=== PATIENT | female | born 1990 | race American Indian/Alaskan Native ===

== ENCOUNTER 2018-07-09 07:02 | Emergency (ER) | payer MEDICAID ==
[2018-07-09 07:36] LABS: Basophils # (Auto) 0.1 K/mm3 (0.0-0.1); Basophils % (Auto) 0.6 % (0.0-1.8); Eosinophils # (Auto) 0.2 K/mm3 (0.0-0.4); Eosinophils % (Auto) 2.3 % (0.0-4.3); Hematocrit 36.9 % (30.3-42.9); Hemoglobin 12.2 gm/dl (10.1-14.3); Lymphocytes # (Auto) 3.6 K/mm3 (1.2-5.4); Lymphocytes % (Auto) 36.8 % (13.4-35.0); Mean Corpuscular HGB Conc 33 % (30-34); Mean Corpuscular Hemoglobin 32 pg (28-32); Mean Corpuscular Volume 97 fl (79-97); Monocytes # (Auto) 0.8 K/mm3 (0.0-0.8); Platelet Count 221 K/mm3 (140-440); Red Blood Count 3.82 M/mm3 (3.65-5.03); Red Cell Distribution Width 14.3 % (13.2-15.2)
[2018-07-09 07:48] LABS: Bilirubin,Urine NEG (Negative); Blood,Urine SM (Negative); Color,Urine Yellow (Yellow); Mucus,Urine 3+ /HPF; Urobilinogen,Urine < 2.0 mg/dL (<2.0)
[2018-07-09 07:51] LABS: Alanine Aminotransferase 9 units/L (7-56); Albumin 3.9 g/dL (3.9-5); BUN/Creatinine Ratio 35; Blood Urea Nitrogen 14 mg/dL (7-17); Calcium 9.2 mg/dL (8.4-10.2); Hemolysis Index 9
[2018-07-09] MEDS ORDERED: TORADOL IM ONE (10:17)
--- NOTE | 2018-07-09 10:20 | Emergency Department Report ---
HPI - General Chief Complaint: Abdominal Pain Time Seen by Provider: 07/09/18 10:08 - HPI HPI: 27-year-old female presents to the emergency department with 2 main complaints. First, the patient has been dealing with a 2 or 3 day history of some left lower back dental pain. She denies any trauma, chipped teeth, discharge or bleeding. She says that she has a dentist but has not seen them regarding the symptoms. Her second complaint is some pelvic pain with some radiation towards the lower back and her sacral area that has been going on for the past few weeks. For both of these symptoms she recently tried some ibuprofen without much relief. She denies any tobacco use but is an occasional marijuana smoker. No primary care physician. Recent travel or sick contacts at home. No drooling or trismus. She also denies any vaginal bleeding or discharge, dysuria, fever, nausea or vomiting. Patient's lab work shows that she is which she was not aware of. Last menstrual cycle was May 26. With this she is with 2 live children and 2 previous abortions. ED Past Medical Hx - Past Medical History Previous Medical History?: No Hx Hypertension: No Hx Congestive Heart Failure: No Hx Diabetes: No Hx Deep Vein Thrombosis: No Hx Renal Disease: No Hx Sickle Cell Disease: No Hx Seizures: No Hx Asthma: No Hx COPD: No Hx HIV: No - Surgical History Past Surgical History?: Yes Additional Surgical History: x 1 - Social History Smoking Status: Never Smoker Substance Use Type: Marijuana - Medications Home Medications: Home Medications Medication Instructions Recorded Confirmed Last Taken Type Ferrous Sulfate [Feosol 325 MG tab] 325 mg PO TID #90 tablet 10/04/14 Unknown Rx Ibuprofen [Motrin 800 MG tab] 800 mg PO Q8H PRN #90 tablet 10/04/14 Unknown Rx oxyCODONE /ACETAMINOPHEN [Percocet 1 tab PO Q6HR PRN #30 tablet 10/04/14 Unknown Rx 5/325 mg] Pnv with Ca,No.72/Iron/FA 1 tab PO DAILY 10/07/14 10/07/14 Unknown History [ Plus Tablet] Valacyclovir HCl [Valacyclovir] 1 tab PO DAILY 10/07/14 10/07/14 Unknown History Acetaminophen/Codeine [Tylenol #3] 1 tab PO Q6H PRN #30 tab 11/21/15 Unknown Rx Cyclobenzaprine [Flexeril] 10 mg PO TID PRN #30 tablet 11/21/15 Unknown Rx Ibuprofen [Motrin] 600 mg PO Q8H PRN #60 tablet 11/21/15 Unknown Rx Amoxicillin [Trimox CAP] 500 mg PO Q8H #21 capsule 07/09/18 Unknown Rx Vits96/Iron Fum/Folic 1 each PO QDAY #30 tablet 07/09/18 Unknown Rx [ Tablet] ED Review of Systems ROS: Stated complaint: MOUTH PAIN,ABD PAIN, BACK PAIN Other details as noted in HPI Comment: All other systems reviewed and negative Constitutional: denies: chills, fever Eyes: denies: eye pain, eye discharge, vision change ENT: dental pain. denies: throat pain Respiratory: denies: cough, shortness of breath, wheezing Cardiovascular: denies: chest pain, palpitations Gastrointestinal: denies: abdominal pain, nausea, diarrhea Genitourinary: other (pelvic pain). denies: dysuria, discharge Musculoskeletal: back pain. denies: arthralgia Skin: denies: rash, lesions Neurological: denies: headache, weakness, paresthesias Physical Exam - Physical Exam Vital Signs: Vital Signs 07/09/18 07:16 Temperature 98.6 F Pulse Rate 103 H Respiratory 18 Rate Blood Pressure 141/72 O2 Sat by Pulse 100 Oximetry Physical Exam: GENERAL: The patient is well-developed well-nourished. HENT: Normocephalic. Atraumatic. Patient has moist mucous membranes. No drooling or trismus. Oropharynx is clear. There is some tenderness to palpation along the left lower gumline and teeth but no palpable or visible abscess. EYES: Extraocular motions are intact. NECK: Supple. Trachea is midline. No obvious lymphadenopathy.. CHEST/LUNGS: Clear to auscultation. There is no respiratory distress noted. HEART/CARDIOVASCULAR: Regular. There is no tachycardia. There is no murmur. ABDOMEN: Abdomen is soft, nontender. No guarding. Patient has normal bowel sounds. There is no abdominal distention. SKIN: Skin is warm and dry. NEURO: The patient is awake, alert, and oriented. The patient is cooperative. The patient has no focal neurologic deficits. The patient has normal speech. MUSCULOSKELETAL: There is no tenderness or deformity. There is no limitation range of motion. There is no evidence of acute injury. ED Course Vital Signs 07/09/18 07:16 Temperature 98.6 F Pulse Rate 103 H Respiratory 18 Rate Blood Pressure 141/72 O2 Sat by Pulse 100 Oximetry ED Medical Decision Making - Lab Data Result diagrams: 07/09/18 07:26 07/09/18 07:26 - Radiology Data Radiology results: report reviewed ULTRASOUND OB LESS THAN 14 WEEKS - TRANSABDOMINAL AND TRANSVAGINAL INDICATION: , pelvic pain. COMPARISON: None similar during this gestation. FINDINGS: Transabdominal and transvaginal pelvic sonography performed in this patient with LMP of 05/26/2018 and estimated menstrual age of 4 weeks and 2 days. It demonstrates an anteverted, gravid uterus estimated at 10.1 x 5.6 x 6.8 cm with a single, viable intrauterine gestation with heart rate of 137 beats per minute. Mean gestational sac diameter of 0.98 cm corresponds to 5 weeks and 5 days. Mean crown-rump length of 0.32 cm corresponds to 6 weeks and zero days. A small yolk sac also seen. Multiple uterine fibroids noted as on endovaginal images 13-31 measuring up to approximately 1.2 cm. Endometrial stripe thickness towards the fundus, where felt seen, is approximately 0.7 cm, endovaginal image 3. Small nabothian cyst also seen. Minimal pelvic free fluid. Unremarkable 3.2 x 1.5 x 2.6 cm right ovary. Left ovary enlarged to 7.6 x 9.2 x 10.7 cm secondary to a 9.5 cm intrinsic cyst as on endovaginal image 42. A 3.2 cm left ovarian cyst was also noted on February 2013 ultrasound report. CONCLUSION: 1. Single, live intrauterine gestation with an ultrasound estimated age of 5 weeks and 6 days and SHERIN of 03/05/2019. 2. Other findings, including multiple small fibroids and a a large left ovarian cyst, as described. Thank you for the opportunity to participate in this patient's care. Transcribed By: RS Dictated By: PAO LOZOYA MD Electronically Authenticated By: PAO LOZOYA MD Signed Date/Time: 07/09/18 1201 - Medical Decision Making Patient came in with 2 complaints. Regarding her tooth and/or jaw pain, the patient may be developing an infection but there is no visible or palpable abscess at this time. No facial swelling. No drooling or trismus. She will be placed on some amoxicillin and encouraged follow-up with a dentist. Regarding her pelvic pain, the patient's blood work came back showing that she has positive . She had a beta hCG of 2800. An obstetrical ultrasound was done that shows a live intrauterine gestation of about 5 weeks and 6 days. There is also multiple small fibroids and a moderate to large left sided ovarian cyst. Any of these could be the cause of her discomfort. No current vaginal bleeding. We discussed using Tylenol and avoiding NSAIDs for discomfort. She'll be started on vitamins. She has been instructed to follow-up with her [facility] in the next few days. She will return to the ER with any worsening of her symptoms or any acute distress. - Differential Diagnosis , fibroids, ovarian cyst, UTI, dental abscess, toothache Critical Care Time: No Critical care attestation.: If time is entered above; I have spent that time in minutes in the direct care of this critically ill patient, excluding procedure time. ED Disposition Clinical Impression: Pain, dental, Pelvic pain Qualifiers: Weeks of gestation: less than 8 weeks Qualified Code(s): Z3A.01 - Less than 8 weeks gestation of Fibroids Qualifiers: Uterine leiomyoma location: unspecified location Qualified Code(s): D25.9 - Leiomyoma of uterus, unspecified Ovarian cyst Qualifiers: Laterality: left Qualified Code(s): N83.202 - Unspecified ovarian cyst, left side Disposition: DC-01 TO HOME OR SELFCARE Is pt being admited?: No Condition: Stable Instructions: (ED), Ovarian Cyst (ED), Uterine Fibroids (ED), Toothache (ED) Additional Instructions: Please follow-up with your [facility] in the next few days. Return to the emergency Department with any worsening of your symptoms, development of vaginal bleeding, or with any acute distress. I'm starting you on vitamins. Take the antibiotics as prescribed. He can take Tylenol as needed, every 4 hours, using weight-based dosing for discomfort but avoid any NSAID such as ibuprofen, Aleve, Motrin, naproxen. Prescriptions: Amoxicillin [Trimox CAP] 500 mg PO Q8H #21 capsule Vits96/Iron Fum/Folic [ Tablet] 1 each PO QDAY #30 tablet Referrals: [facility] [Provider Group] - 2-3 Days Time of Disposition: 12:31
--- NOTE | 2018-07-09 12:07 | Ultrasound Report ---
ULTRASOUND OB LESS THAN 14 WEEKS - TRANSABDOMINAL AND TRANSVAGINAL INDICATION: , pelvic pain. COMPARISON: None similar during this gestation. FINDINGS: Transabdominal and transvaginal pelvic sonography performed in this patient with LMP of 05/26/2018 and estimated menstrual age of 4 weeks and 2 days. It demonstrates an anteverted, gravid uterus estimated at 10.1 x 5.6 x 6.8 cm with a single, viable intrauterine gestation with heart rate of 137 beats per minute. Mean gestational sac diameter of 0.98 cm corresponds to 5 weeks and 5 days. Mean crown-rump length of 0.32 cm corresponds to 6 weeks and zero days. A small yolk sac also seen. Multiple uterine fibroids noted as on endovaginal images 13-31 measuring up to approximately 1.2 cm. Endometrial stripe thickness towards the fundus, where felt seen, is approximately 0.7 cm, endovaginal image 3. Small nabothian cyst also seen. Minimal pelvic free fluid. Unremarkable 3.2 x 1.5 x 2.6 cm right ovary. Left ovary enlarged to 7.6 x 9.2 x 10.7 cm secondary to a 9.5 cm intrinsic cyst as on endovaginal image 42. A 3.2 cm left ovarian cyst was also noted on February 2013 ultrasound report. CONCLUSION: 1. Single, live intrauterine gestation with an ultrasound estimated age of 5 weeks and 6 days and SHERIN of 03/05/2019. 2. Other findings, including multiple small fibroids and a a large left ovarian cyst, as described. Thank you for the opportunity to participate in this patient's care.
[2018-07-09 12:38] VITALS: BP 118/62
== END 2018-07-09 12:36 | disposition home or self-care (01) ==
LOC: ED 07:02
DX: O26.891 Other specified pregnancy related conditions, first trimester (principal); K08.89 Other specified disorders of teeth and supporting structures; D25.9 Leiomyoma of uterus, unspecified; N83.202 Unspecified ovarian cyst, left side; Z3A.01 Less than 8 weeks gestation of pregnancy
CPT/HCPCS: 36415; 76801; 76817; 80053; 81001; 84702; 84703; 85025; 99284

== ENCOUNTER 2019-06-12 14:40 | Emergency (ER) | payer MEDICAID ==
[2019-06-12 16:00] VITALS: BP 133/76
[2019-06-12] MEDS ORDERED: TORADOL IM ONE (16:00)
--- NOTE | 2019-06-12 16:00 | Event Note ---
ED Screening Note Date of service: 06/12/19 Time: 15:58 ED Screening Note: 28 y/o female comes in for headache and back pain for 1 week of headache. Took Ibuprofen a couple days ago. No trauma. No weakness. This initial assessment/diagnostic orders/clinical plan/treatment(s) is/are subject to change based on patients health status, clinical progression and re- assessment by fellow clinical providers in the ED. Further treatment and workup at subsequent clinical providers discretion. Patient/guardian urged not to elope from the ED as their condition may be serious if not clinically assessed and managed. Initial orders include:
[2019-06-12] MEDS ORDERED: REGLAN PO ONE (17:32)
[2019-06-12] MEDS ORDERED: BENADRYL PO ONE (17:32)
--- NOTE | 2019-06-12 17:32 | Emergency Department Report ---
ED General Adult HPI - General Chief complaint: Headache Stated complaint: HEADACHE/BACK PAIN Time Seen by Provider: 06/12/19 15:58 Source: patient Mode of arrival: Ambulatory Limitations: No Limitations - History of Present Illness Initial comments: Patient is a 28-year-old female who presents emergency room with complaints of a right frontal headache that began a week ago. Patient states it has been intermittently. She states she has been taking ibuprofen with some relief. Patient denies any vision changes, numbness, weakness, fever, neck stiffness, gait disturbance, speech disturbance. States she has also been having some lower back discomfort since today. she denies any urinary symptoms, nausea, vomiting, diarrhea, fall, injury, bowel or bladder incontinence, numbness, weakness. LNMP was [id number]. Severity scale (0 -10): 8 - Related Data Home Medications Medication Instructions Recorded Confirmed Last Taken Pnv with Ca,No.72/Iron/FA 1 tab PO DAILY 10/07/14 10/07/14 Unknown [ Plus Tablet] Valacyclovir HCl [Valacyclovir] 1 tab PO DAILY 10/07/14 10/07/14 Unknown Previous Rx's Medication Instructions Recorded Last Taken Type Ferrous Sulfate [Feosol 325 MG tab] 325 mg PO TID #90 tablet 10/04/14 Unknown Rx Ibuprofen [Motrin 800 MG tab] 800 mg PO Q8H PRN #90 tablet 10/04/14 Unknown Rx oxyCODONE /ACETAMINOPHEN [Percocet 1 tab PO Q6HR PRN #30 tablet 10/04/14 Unknown Rx 5/325 mg] Acetaminophen/Codeine [Tylenol #3] 1 tab PO Q6H PRN #30 tab 11/21/15 Unknown Rx Cyclobenzaprine [Flexeril] 10 mg PO TID PRN #30 tablet 11/21/15 Unknown Rx Ibuprofen [Motrin] 600 mg PO Q8H PRN #60 tablet 11/21/15 Unknown Rx Amoxicillin [Trimox CAP] 500 mg PO Q8H #21 capsule 07/09/18 Unknown Rx Vits96/Iron Fum/Folic 1 each PO QDAY #30 tablet 07/09/18 Unknown Rx [ Tablet] Baclofen [Lioresal] 10 mg PO QHS PRN #10 tab 06/12/19 Unknown Rx Butalb/Acetaminophen/Caffeine 1 cap PO Q8HR PRN #10 cap 06/12/19 Unknown Rx [Fioricet 50-300-40 mg CAP] Naproxen [EC-Naproxen] 500 mg PO BID PRN #14 tablet. 06/12/19 Unknown Rx Allergies Allergy/AdvReac Type Severity Reaction Status Date / Time No Known Allergies Allergy Unverified 07/31/13 23:52 ED Review of Systems ROS: Stated complaint: HEADACHE/BACK PAIN Other details as noted in HPI Comment: All other systems reviewed and negative ED Past Medical Hx - Past Medical History Previous Medical History?: Yes Hx Hypertension: No Hx Congestive Heart Failure: No Hx Diabetes: No Hx Deep Vein Thrombosis: No Hx Renal Disease: No Hx Sickle Cell Disease: No Hx Seizures: No Hx Asthma: No Hx COPD: No Hx HIV: No Additional medical history: Scoliosis - Surgical History Past Surgical History?: No Additional Surgical History: x 1 - Social History Smoking Status: Never Smoker Substance Use Type: None, Marijuana - Medications Home Medications: Home Medications Medication Instructions Recorded Confirmed Last Taken Type Ferrous Sulfate [Feosol 325 MG tab] 325 mg PO TID #90 tablet 10/04/14 Unknown Rx Ibuprofen [Motrin 800 MG tab] 800 mg PO Q8H PRN #90 tablet 10/04/14 Unknown Rx oxyCODONE /ACETAMINOPHEN [Percocet 1 tab PO Q6HR PRN #30 tablet 10/04/14 Unknown Rx 5/325 mg] Pnv with Ca,No.72/Iron/FA 1 tab PO DAILY 10/07/14 10/07/14 Unknown History [ Plus Tablet] Valacyclovir HCl [Valacyclovir] 1 tab PO DAILY 10/07/14 10/07/14 Unknown History Acetaminophen/Codeine [Tylenol #3] 1 tab PO Q6H PRN #30 tab 11/21/15 Unknown Rx Cyclobenzaprine [Flexeril] 10 mg PO TID PRN #30 tablet 11/21/15 Unknown Rx Ibuprofen [Motrin] 600 mg PO Q8H PRN #60 tablet 11/21/15 Unknown Rx Amoxicillin [Trimox CAP] 500 mg PO Q8H #21 capsule 07/09/18 Unknown Rx Vits96/Iron Fum/Folic 1 each PO QDAY #30 tablet 07/09/18 Unknown Rx [ Tablet] Baclofen [Lioresal] 10 mg PO QHS PRN #10 tab 06/12/19 Unknown Rx Butalb/Acetaminophen/Caffeine 1 cap PO Q8HR PRN #10 cap 06/12/19 Unknown Rx [Fioricet 50-300-40 mg CAP] Naproxen [EC-Naproxen] 500 mg PO BID PRN #14 tablet. 06/12/19 Unknown Rx ED Physical Exam - General Limitations: No Limitations General appearance: alert, in no apparent distress - Head Head exam: Present: atraumatic, normocephalic - Eye Eye exam: Present: normal appearance, PERRL, EOMI. Absent: conjunctival injection, nystagmus, periorbital swelling, periorbital tenderness - ENT ENT exam: Present: mucous membranes moist - Neck Neck exam: Present: normal inspection, full ROM. Absent: tenderness, meningismus - Respiratory Respiratory exam: Absent: normal lung sounds bilaterally, respiratory distress, wheezes, rales, rhonchi, stridor, accessory muscle use, decreased breath sounds, prolonged expiratory - Cardiovascular Cardiovascular Exam: Present: regular rate, normal rhythm, normal heart sounds. Absent: systolic murmur, diastolic murmur, rubs, gallop - Back Exam Back exam: Present: normal inspection, full ROM. Absent: paraspinal tenderness, vertebral tenderness - Neurological Exam Neurological exam: Present: alert, oriented X3, CN II-XII intact, normal gait. Absent: motor sensory deficit - Psychiatric Psychiatric exam: Present: normal affect, normal mood - Skin Skin exam: Present: warm, dry, intact ED Course Vital Signs 06/12/19 06/12/19 06/12/19 15:58 17:14 19:20 Temperature 97.7 F Pulse Rate 89 82 Respiratory 18 18 16 Rate Blood Pressure 133/76 O2 Sat by Pulse 100 100 Oximetry ED Medical Decision Making - Lab Data Lab Results 06/12/19 Range/Units 18:19 Urine Color Yellow (Yellow) Urine Turbidity Slightly-cloudy (Clear) Urine pH 6.0 (5.0-7.0) Ur Specific Norris 1.019 (1.003-1.030) Urine Protein <15 mg/dl (Negative) mg/dL Urine Glucose (UA) Neg (Negative) mg/dL Urine Ketones Neg (Negative) mg/dL Urine Blood Neg (Negative) Urine Nitrite Neg (Negative) Urine Bilirubin Neg (Negative) Urine Urobilinogen 4.0 (<2.0) mg/dL Ur Leukocyte Esterase Neg (Negative) Urine WBC (Auto) 1.0 (0.0-6.0) /HPF Urine RBC (Auto) 4.0 (0.0-6.0) /HPF U Epithel Cells (Auto) 7.0 (0-13.0) /HPF Urine Bacteria (Auto) 1+ (Negative) /HPF Urine Mucus 3+ /HPF Urine HCG, Qual Negative (Negative) - Medical Decision Making Patient is a 28-year-old female who presents emergency room with complaints of a right frontal headache that began a week ago. Patient states it has been intermittently. She states she has been taking ibuprofen with some relief. Patient denies any vision changes, numbness, weakness, fever, neck stiffness, gait disturbance, speech disturbance. States she has also been having some lower back discomfort since today. she denies any urinary symptoms, nausea, vomiting, diarrhea, fall, injury, bowel or bladder incontinence, numbness, w [place]akness. [place]MP [place] [id number]. VSS. on exam no C-spine, T-spine, or L-spine tenderness to palpation no paraspinal tenderness, no step offs, no deformities, no focal neuro deficit. UA without evidence of UTI. pt given medications for headache relief while in the ED and headache improved. pt given prescription for fioricet, naproxen, and baclofen. advised pt to please take medication as prescribed as needed. May use ice, rest, heating pad, epsom salt bath. Follow up with a primary care doctor and neurologist in the next 2-3 days. Return to the emergency room for any new or worsening symptoms. - Differential Diagnosis migraine, cluster REYNOLDS, tension REYNOLDS, strain, UTI, sciatica Critical care attestation.: If time is entered above; I have spent that time in minutes in the direct care of this critically ill patient, excluding procedure time. ED Disposition Clinical Impression: Headache Qualifiers: Headache type: unspecified Headache chronicity pattern: acute headache Intractability: not intractable Qualified Code(s): R51 - Headache Back pain Qualifiers: Back pain location: low back pain Chronicity: acute Back pain laterality: bilateral Sciatica presence: without sciatica Qualified Code(s): M54.5 - Low back pain Disposition: TO HOME OR SELFCARE Is pt being admited?: No Does the pt Need Aspirin: No Condition: Stable Instructions: Muscle Strain (ED), Acute Headache (ED) Additional Instructions: Please take medication as prescribed as needed. May use ice, rest, heating pad, epsom salt bath. Follow up with a primary care doctor and neurologist in the next 2-3 days. Return to the emergency room for any new or worsening symptoms. Prescriptions: Baclofen [Lioresal] 10 mg PO QHS PRN #10 tab PRN Reason: Muscle Spasm Naproxen [EC-Naproxen] 500 mg PO BID PRN #14 tablet.dr PRN Reason: back pain Butalb/Acetaminophen/Caffeine [Fioricet 50-300-40 mg CAP] 1 cap PO Q8HR PRN #10 cap PRN Reason: headache Referrals: [facility] [Provider Group] - 2-3 Days JONN AMAYA MD [Referring] - 2-3 Days Time of Disposition: 19:08 Print Language: ROMANSH
[2019-06-12 18:39] LABS: Bacteria,Urine 1+ /HPF (Negative); Bilirubin,Urine NEG (Negative); Blood,Urine NEG (Negative); Color,Urine Yellow (Yellow); Mucus,Urine 3+ /HPF; Protein,Urine <15 mg/dL mg/dL (Negative)
[2019-06-12 18:44] LABS: HCG Qualitative,Urine Negative (Negative)
== END 2019-06-12 19:19 | disposition home or self-care (01) ==
LOC: ED 14:40
DX: M54.5 Low back pain (principal); R51 Headache; Z79.1 Long term (current) use of non-steroidal anti-inflammatories (NSAID); Z79.899 Other long term (current) drug therapy; F12.10 Cannabis abuse, uncomplicated
CPT/HCPCS: 81001; 81025; 96372; 99283; J1885